=== PATIENT | male | born 1930 | race Caucasian/White ===

== ENCOUNTER 2018-08-10 09:32 | Outpatient (CLI) | payer MEDICARE, BC ==
[~2018-08-10] VITALS: Ht 193 cm; Wt 93.0 kg
[~2018-08-10 09:32] MED LIST: ACET325T49 PO; ACHD5005 PO; ALFU10TA11 PO; ASPI-983 PO; ASPI-999 PO; BACL10TA PO; BETH25TA PO; CALC-250 PO; CARV6.252 PO; CETI10TA20 PO; DOCU-238 PO; DOCU100C37 PO; GABA-486 PO; LACT20SO2 PO; LEVO500T2 PO; LISI10TA2 PO; MAGN400O7 PO; Multivitamins/Minerals Therap PO; ONDA8TAB13 PO; PANT20TA2 PO; PANT40TA3 PO; PHEN-826 PO; POLY17PO6 PO; ROSU10TA PO; SENN-33 PO; SUCR1TAB PO; TAMS0.4C98 PO
[2018-08-10 09:48] VITALS: BP 115/68
[2018-08-10 10:21] LABS: BASOPHILS % (AUTO) 1 % (0-10); EOSINOPHILS # (AUTO) 0.3 10^3/uL (0.0-0.3); EOSINOPHILS % (AUTO) 5 % (0-10); HEMATOCRIT 39 % (40-54); HEMOGLOBIN 12.4 G/DL (13.3-17.7); LYMPHOCYTES # (AUTO) 1.3 X 10^3 (1.0-4.0); LYMPHOCYTES % (AUTO) 18 % (12-44); MEAN CORPUSCULAR HEMOGLOBIN 29 PG (25-34); MEAN CORPUSCULAR HGB CONC 32 G/DL (32-36); MEAN CORPUSCULAR VOLUME 92 FL (80-99); MEAN PLATELET VOLUME 11.6 FL (7.4-10.4); MONOCYTES # (AUTO) 0.6 X 10^3 (0.0-1.0); MONOCYTES % (AUTO) 8 % (0-12); NEUTROPHILS # (AUTO) 4.8 X 10^3 (1.8-7.8); NEUTROPHILS % (AUTO) 68 % (42-75); PLATELET COUNT 140 10^3/uL (130-400); RED CELL DISTRIBUTION WIDTH 13.3 % (10.0-14.5); WHITE BLOOD COUNT 7.1 10^3/uL (4.3-11.0)
[2018-08-10] MEDS ORDERED: GABA-488 PO (10:24)
[2018-08-10] MEDS ORDERED: FURO40TA4 PO (10:24)
[2018-08-10] MEDS ORDERED: MULT-1104 PO (10:24)
[2018-08-10] MEDS ORDERED: SPIR25TA5 PO (10:24)
[2018-08-10] MEDS ORDERED: LACT1CAP62 PO (10:24)
[2018-08-10] MEDS ORDERED: TAMS0.4C2 PO (10:24)
[2018-08-10] MEDS ORDERED: SENN1TAB7 PO (10:24)
[2018-08-10] MEDS ORDERED: CHOL10003 PO (10:24)
== END 2018-08-10 10:15 | disposition home or self-care (01) ==
LOC: PREOP 09:32
PROVIDERS: ATTEND Orthopaedic Surgery Orthopaedic Surgery of the Spine
DX: Z01.812 Encounter for preprocedural laboratory examination (principal); Z11.2 Encounter for screening for other bacterial diseases; M48.061 Spinal stenosis, lumbar region without neurogenic claudication; I10 Essential (primary) hypertension; Z22.322 Carrier or suspected carrier of Methicillin resistant Staphylococcus aureus
CPT/HCPCS: 36415; 85025; 87081

== ENCOUNTER 2018-08-16 06:58 | Day surgery (SDC) | payer MEDICARE, BC ==
[~2018-08-16] VITALS: Ht 193 cm; Wt 93.0 kg
[~2018-08-16 06:58] MED LIST changes: +CHOL10003 PO; +FURO40TA4 PO; +GABA-488 PO; +LACT1CAP62 PO; +MULT-1104 PO; +SENN1TAB7 PO; +SPIR25TA5 PO; +TAMS0.4C2 PO
[2018-08-16] MEDS ORDERED: BUP/EPI 0.5% 1:200,000 (SENSORCAINE) 30 ML VIAL ONE (07:21)
[2018-08-16] MEDS ORDERED: BACITRACIN OINTMENT 28 GM TUBE ONE (07:21)
[2018-08-16] MEDS ORDERED: VANCOMYCIN 1000 MG/VIAL ONE (07:21)
[2018-08-16] MEDS ORDERED: GENTAMICIN 40 MG/ML 2 ML INJ SDV ONE (07:21)
[2018-08-16] MEDS ORDERED: HYDROcodone/APAP 5 MG/325 MG (LORTAB) TAB PO PRN (07:30)
[2018-08-16] MEDS ORDERED: ceFAZolin 2 GM IV Premixed 50 ML IV ONE (07:30)
[2018-08-16] MEDS: LACTATED RINGERS 1,000 ML IV PRN ×2 (07:30→10:04)
[2018-08-16] MEDS ORDERED: ACETAMINOPHEN 325 MG TABLET PO PRN (07:30)
[2018-08-16] MEDS ORDERED: ONDANSETRON 4 MG/2 ML (SDV) Z0FRAN IV PRN (07:30)
[2018-08-16] MEDS ORDERED: morphine INJ 4 MG/ML 1 ML (VIAL/SYRINGE) IVP PRN (07:30)
[2018-08-16] MEDS ORDERED: FAMOTIDINE 20MG/2ML IV (PEPCID) ONE (07:31)
[2018-08-16] MEDS ORDERED: ceFAZolin 2 GM IV Premixed 50 ML ONE (07:31)
[2018-08-16] MEDS ORDERED: FAMOTIDINE 20MG/2ML IV (PEPCID) IVP ONE (08:15)
[2018-08-16] MEDS ORDERED: proPOfol 200 MG/20 ML (DIPRIVAN) VIAL IV ONE (08:23)
[2018-08-16] MEDS ORDERED: LIDOCAINE PF 2% 5 ML (XYLOCAINE) VIAL ONE (08:23)
[2018-08-16] MEDS ORDERED: ROCURONIUM 10 MG/ML 5 ML SYRINGE IV ONE (08:23)
[2018-08-16] MEDS ORDERED: fentaNYL INJECTION 100 MCG/2 ML AMP ONE (08:24)
[2018-08-16] MEDS ORDERED: SEVOFLURANE (ULTANE) 15 ML INHAL SOLN ONE ×4 (08:28→09:58)
[2018-08-16] MEDS ORDERED: ONDANSETRON 4 MG/2 ML (SDV) Z0FRAN ONE (08:28)
[2018-08-16] MEDS ORDERED: PHENYLEPHRINE 100 MCG/ML 10 ML (ANESTHESIA) SYR ONE (09:12)
[2018-08-16] MEDS ORDERED: NEOSTIGMINE 1 MG/ML 5 ML SYRINGE ONE (09:12)
[2018-08-16] MEDS ORDERED: GLYCOPYRROLATE 0.2 MG/ML (ROBINUL) 2 ML VIAL ONE (09:12)
[2018-08-16] MEDS ORDERED: DEXAMETHASONE 10 MG/ML (DECADRON) 1 ML VIAL ONE (09:15)
--- NOTE | 2018-08-16 09:47 | Progress Note-Post Operative ---
Post-Operative Progess Note Surgeon (s)/Marketing Copywriter (s) Surgeon FABRIZIO NUNEZ MD Marketing Copywriter: SCOOBY Brown Pre-Operative Diagnosis stenosis Post-Operative Diagnosis Same Procedure & Operative Findings Date of Procedure 08/16/18 Procedure Performed/Findings L2-3 Laminectomy Anesthesia Type GETA Estimated Blood Loss Estimated blood loss (mL): Min Specimens/Packing Specimens Removed None FABRIZIO NUNEZ MD Aug 16, 2018 09:47
[2018-08-16] MEDS ORDERED: SUGAMMADEX 500 MG/5 ML VIAL (BRIDION) IV ONE (09:53)
--- NOTE | 2018-08-16 10:02 | Diagnostic Imaging Report ---
INDICATION: Surgery. FINDINGS: 4 seconds of actual fluoroscopy time was utilized during lumbosacral surgery. IMPRESSION: 4 seconds of actual fluoroscopy time during spinal surgery. Dictated by: Dictated on workstation # [id number]
[2018-08-16] MEDS ORDERED: ONDANSETRON 4 MG/2 ML (SDV) Z0FRAN IVP PRN (10:15)
[2018-08-16] MEDS ORDERED: morphine INJ 10 MG/ML 1ML (SYR OR VIAL) IVP ONE (10:15)
[2018-08-16] MEDS ORDERED: morphine INJ 10 MG/ML 1ML (SYR OR VIAL) ONE (10:25)
[2018-08-16] MEDS ORDERED: CEFAZOLIN IV SCH (11:30)
[2018-08-16] MEDS ORDERED: WATER IV SCH (11:30)
[2018-08-16 12:00] VITALS: BP 139/67
--- NOTE | 2018-08-16 12:50 | Consultation-Hospitalist ---
HPI History of Present Illness: HPI/Chief Complaint CC: Status post uncomplicated laminectomy by Dr. Garibay POD # 0 HPI: This is an 87-year-old white male known to me from 3 years prior spinal surgery that was extensive and complicated resulting in a 13 day stay in inpatient rehabilitation due to urinary retention and UTI with complicated bacteria. Currently he has just undergone a very simple laminectomy and has no concerns at this time. Pain is much improved since morphine given in recovery. Does not wish to have catheter and less obsolete necessary since he has a large bladder and will know if he cannot urinate so I did pass that along to the nurse. Family at the bedside. Source: patient, family, RN/MD Exam Limitations: no limitations Date Seen 08/16/18 Attending Physician Matt Garibay MD PCP Julio Campbell MD Referring Physician Date of Admission Home Medications & Allergies Home Medications Reviewed patient Home Medication Reconciliation performed by pharmacy medication reconciliations land survey technician and/or nursing. Patients Allergies have been reviewed. Allergies Allergies Coded Allergies No Known Drug Allergies (Unverified02/11/16) Past Byifpky-Gcituk-Excymo Hx Past Med/Social Hx: Reviewed Nursing Past Med/Soc Hx, Reviewed and Corrections made Patient Social History Marrital Status: Employed/Student: retired ([employer] [place] [employer] ) Alcohol Use: Rarely Uses Recreational Drug Use: No Smoking Status: Never a Smoker 2nd Hand Smoke Exposure: No Recent Foreign Travel: No Contact w/other who traveled: No Recent Hopitalizations: No Recent Infectious Disease Expo: No Immunizations Up To Date Tetanus Booster (TDap): Unknown Pediatric: No Date of Pneumonia Vaccine: Feb 24, 2011 Date of Influenza Vaccine: Apr 12, 2018 Seasonal Allergies Seasonal Allergies: Yes Past Medical History Surgeries: Orthopedic Currently Using CPAP: No Currently Using BIPAP: No Cardiac: Coronary Artery Disease, High Cholesterol, Hypertension Reproductive: No Sexually Transmitted Disease: No HIV/AIDS: No Genitourinary: Benign Prostatic Hyperpl Gastrointestinal: Gastroesophageal Reflux, Chronic Constipation, Polyps Musculoskeletal: Degenerate Disk Disease, Back Injury, Chronic Back Pain Loss of Vision: Bilateral Hearing Impairment: Hard of Hearing History of Blood Disorders: No Adverse Reaction to Blood Salazar: No (N/A) Family History Cardiovascular disease 19 FATHER 19 MOTHER Colon cancer G8 SISTER Hypertension 19 FATHER 19 MOTHER Myocardial infarction 19 FATHER 19 MOTHER Respiratory disorder G8 SISTER (lung cancer) Review of Systems Constitutional: see HPI EENTM: no symptoms reported Respiratory: no symptoms reported Cardiovascular: no symptoms reported Genitourinary: no symptoms reported Musculoskeletal: back pain Skin: no symptoms reported Psychiatric/Neurological: No Symptoms Reported Physical Exam Physical Exam Vital Signs Vital Signs - First Documented 08/16/18 08/16/18 07:15 12:00 Temp 97.4 Pulse 66 Resp 18 B/P (MAP) 139/67 (91) Pulse Ox 97 O2 Delivery Room Air Capillary Refill : Height, Weight, BMI Height: 6'4.00" Weight: 205lbs. 0.0oz. [id number]; 25.0 BMI Method: General Appearance: No Apparent Distress, WD/WN, Chronically ill Eyes: Bilateral Eye Normal Inspection, Bilateral Eye PERRL HEENT: PERRL/EOMI, TMs Normal, Normal ENT Inspection, Pharynx Normal Neck: Full Range of Motion, Normal Inspection, Non Tender, Supple, Carotid Bruit Respiratory: Chest Non Tender, Lungs Clear, Normal Breath Sounds, No Accessory Muscle Use, No Respiratory Distress Cardiovascular: Regular Rate, Rhythm, No Edema, No Gallop, No JVD, No Murmur, Normal Peripheral Pulses Gastrointestinal: Normal Bowel Sounds, No Organomegaly, No Pulsatile Mass, Non Tender, Soft Back: Decreased Range of Motion Extremity: Normal Capillary Refill, Normal Inspection, Normal Range of Motion, Non Tender, No Calf Tenderness, No Pedal Edema Neurologic/Psychiatric: Alert, Oriented x3, No Motor/Sensory Deficits, Normal Mood/Affect Skin: Normal Color, Warm/Dry Lymphatic: No Adenopathy Results Results/Procedures Labs Patient resulted labs reviewed. Assessment/Plan Assessment and Plan Assess & Plan/Chief Complaint Assessment: Status post uncomplicated laminectomy History of extensive spine surgery requiring inpatient rehabilitation for 13 days History of urinary retention status post complicated UTI requiring IV antibiotics CAD extensive disease primary drawbench operator helper is Dr. Gerardo now Dr. Patel evaluated him in preparation for the surgery today Hypertension Hyperlipidemia Plan: Pain control SCDs Check labs in a.m. Cardiology consultation Diagnosis/Problems Diagnosis/Problems (1) Failed back syndrome of lumbar spine Status: Acute (2) CAD (coronary artery disease) Status: Chronic Qualifiers: Coronary Disease-Associated Artery/Lesion type: [place] artery [place] vs. transplanted heart: [place] heart Associated angina: without angina Qualified Codes: I25.10 - Atherosclerotic heart disease of [place] coronary artery without angina pectoris (3) Hypertension Status: Chronic Qualifiers: Hypertension type: essential hypertension Qualified Codes: I10 - Essential (primary) hypertension (4) Urinary retention Status: Chronic (5) History of UTI Status: Chronic LUCIAN RAY DO Aug 16, 2018 12:50
[2018-08-16] MEDS: DOCUSATE SODIUM 100 MG (COLACE) CAP PO SCH ×2 (13:16→21:18)
[2018-08-16] MEDS: NS IV 1000 ML 1,000 ML IV SCH ×2 (13:17→21:17)
[2018-08-16 15:49] VITALS: BP 111/53
--- NOTE | 2018-08-16 16:39 | OPERATIVE REPORT ---
DATE OF SERVICE: 08/16/2018 PREOPERATIVE DIAGNOSES: Lumbar stenosis, neural canal due to disk and osseous structures and neurogenic claudication. POSTOPERATIVE DIAGNOSES: Lumbar stenosis, neural canal due to disk and osseous structures and neurogenic claudication. PROCEDURES PERFORMED: L2-L3 laminectomy, medial facetectomy and foraminotomy. DATE AND TIME OF SURGERY: Please see anesthesia record. SURGEON: Matt Garibay MD SHOP TECH: JOSE Brown. ROLE OF GRADES 9 12 TUTOR: Aid in retraction of the procedure, suction of neural elements, and wound closure. ANESTHESIA: General endotracheal. ESTIMATED BLOOD LOSS: Minimal. INTRAVENOUS FLUIDS: Please see anesthesia record. ANTIBIOTICS: Ancef. COMPLICATIONS: None. INDICATIONS FOR PROCEDURE: The patient is an 87-year-old male with severe back pain and lower extremity pain, high grade stenosis, failed conservative therapy, desires operative treatment. NEUROMONITORING: Standard intraoperative neurophysiological monitoring carried out by means of real time continuous high quality bidirectional mode, audio and visual communication to both the automotive paint technician and surgeon by Dr. Garza. SSEPS, EMGs, TcMEPs, TOFs were carried out continuously throughout the procedure stable. DESCRIPTION OF PROCEDURE: The patient was taken to the preoperative holding area and brought back to the operative suite. After adequate induction of general anesthesia, preoperative antibiotics, turned prone on José Miguel table, careful padding to all extremities, sterilely prepped and draped posterior lumbar spine. Attention directed into the midline incision made overlying L2-L3 confirmed on imaging showed a cerebellar retractor was placed deep. Remainder of the case and then a partial 2, partial 3 laminectomy, bilateral medial facetectomy and foraminotomy carried out. Full neck and decompression was assured. Hemostasis was achieved. FloSeal, bone wax and bipolar cautery were utilized free in hemostasis. Wound was copiously irrigated. Wound was closed in layers. The patient transferred to recovery room in stable condition and tolerated the procedure well with stable spinal monitoring. Job ID: [id number] DocumentID: [id number] Dictated Date: 08/16/2018 09:46:13 Commercial Plumber Date: 08/16/2018 16:38:19 Dictated By: MATT GARIBAY MD
[2018-08-16] MEDS: ceFAZolin 2 GM IV Premixed 50 ML IV SCH (16:45)
[2018-08-16] MEDS ORDERED: FUROSEMIDE 40 MG (LASIX) TAB PO PRN (18:45)
[2018-08-16 19:44] VITALS: BP 119/67
[2018-08-16] MEDS ORDERED: ROSUVASTATIN 10 MG (CRESTOR) TABLET PO SCH (21:00)
[2018-08-16] MEDS ORDERED: ASPIRIN E.C. 81 MG (ECOTRIN) TAB PO SCH (21:00)
[2018-08-16] MEDS ORDERED: POLYETHYLENE GLYCOL 17 GM (MIRALAX) PACK PO PRN (21:00)
[2018-08-16] MEDS ORDERED: TAMSULOSIN 0.4 MG (FLOMAX) CAP PO SCH (21:00)
[2018-08-16] MEDS: CARVEDILOL 3.125 MG (COREG) TABLET PO SCH (21:18)
[2018-08-16] MEDS: SPIRONOLACTONE 25 MG (ALDACTONE) TAB PO SCH (21:18)
[2018-08-16] MEDS: GABAPENTIN 300 MG (NEURONTIN) CAP PO SCH (21:19)
--- NOTE | 2018-08-16 21:43 | NUR ---
This RN called Dr. Longoria due to pt not voiding and has been on floor since 1100 today. Order received for mendoza cath.
[2018-08-16] MEDS ORDERED: LIDOCAINE UROJET 2% GEL 10 ML PKG TOP ONE (21:45)
[2018-08-16] MEDS ORDERED: LIDOCAINE UROJET 2% GEL 10 ML PKG ONE (21:48)
[2018-08-16] MEDS: SENNA W/DOCUSATE (SENOKOT S) TABLET PO SCH (22:24)
[2018-08-17] VITALS: BP 114/56
[2018-08-17 03:37] VITALS: BP 107/51
[2018-08-17] MEDS: ceFAZolin 2 GM IV Premixed 50 ML IV SCH (03:48)
[2018-08-17] MEDS: NS IV 1000 ML 1,000 ML IV SCH (03:49)
[2018-08-17 06:15] LABS: BASOPHILS % (AUTO) 0 % (0-10); EOSINOPHILS % (AUTO) 0 % (0-10); HEMATOCRIT 34 % (40-54); HEMOGLOBIN 10.9 G/DL (13.3-17.7); LYMPHOCYTES % (AUTO) 8 % (12-44); MEAN CORPUSCULAR HEMOGLOBIN 29 PG (25-34); MEAN CORPUSCULAR HGB CONC 32 G/DL (32-36); MEAN CORPUSCULAR VOLUME 91 FL (80-99); MEAN PLATELET VOLUME 11.7 FL (7.4-10.4); MONOCYTES # (AUTO) 0.7 X 10^3 (0.0-1.0); MONOCYTES % (AUTO) 5 % (0-12); NEUTROPHILS # (AUTO) 10.7 X 10^3 (1.8-7.8); NEUTROPHILS % (AUTO) 87 % (42-75); PLATELET COUNT 138 10^3/uL (130-400); RED CELL DISTRIBUTION WIDTH 13.3 % (10.0-14.5); WHITE BLOOD COUNT 12.3 10^3/uL (4.3-11.0)
[2018-08-17 06:32] LABS: ALANINE AMINOTRANSFERASE 10 U/L (0-55); ALBUMIN 3.2 GM/DL (3.2-4.5); ALKALINE PHOSPHATASE 77 U/L (40-136); BILIRUBIN,TOTAL 0.4 MG/DL (0.1-1.0); BUN/CREATININE RATIO 18; CALCIUM 8.4 MG/DL (8.5-10.1); CARBON DIOXIDE 21 MMOL/L (21-32); CHLORIDE 109 MMOL/L (98-107); CREATININE SERUM 1.02 MG/DL (0.60-1.30); GFR ESTIMATED > 60; GLUCOSE 130 MG/DL (70-105); POTASSIUM 4.2 MMOL/L (3.6-5.0); SODIUM 140 MMOL/L (135-145)
[2018-08-17 06:50] LABS: EOSINOPHILS % (MANUAL) 1 %; LYMPHOCYTES % (MANUAL) 7 %; MONOCYTES % (MANUAL) 5 %; NEUTROPHILS % (MANUAL) 87 %; RBC MORPH NORMAL
[2018-08-17] MEDS ORDERED: LACTOBACILLUS ACIDOPHILUS (PROBIOTIC) CAPSULE PO SCH (07:00)
[2018-08-17] MEDS ORDERED: VITAMIN D3 1,000 UNITS (CHOLECALCIFEROL) TABLET PO SCH (07:00)
[2018-08-17] MEDS ORDERED: MULTIVIT W/MINERALS TAB (THERAGRAN M) PO SCH ×2 (07:00)
[2018-08-17] MEDS ORDERED: PANTOPRAZOLE 40 MG (PROTONIX) TAB PO SCH ×2 (07:00→09:00)
--- NOTE | 2018-08-17 07:18 | Consultation-Cardiology ---
HPI-Cardiology Cardiology Consultation Date of Consultation 08/17/18 Date of Admission Time Seen by Provider: 07:15 Indication: coronary artery disease HPI 87 years old gentleman with history of coronary artery disease, hypertension hyperlipidemia, underwent laminectomy surgery yesterday, seen this morning sitting up and eating breakfast, feeling well, denied any chest pain or shortness of breath. No palpitation, syncope or near syncopal episode, still having difficulty with urination, had a catheter Home Medications & Allergies Allergies: Coded Allergies: No Known Drug Allergies (Unverified , 02/11/16) Home Medication List Reviewed: Yes KXB-Ysfilg-Mtpiaq Hx Patient Social History Marital Status: Employed/Student: retired ([employer] ) Alcohol Use: Rarely Uses Recreational Drug Use: No Smoking Status: Never a Smoker 2nd Hand Smoke Exposure: No Recent Foreign Travel: No Recent Infectious Disease Expo: No Recent Hopitalizations: No Physical Abuse Screen: No Sexual Abuse: No Immunizations Up To Date Tetanus Booster (TDap): Unknown Date of Pneumonia Vaccine: Feb 24, 2011 Date of Influenza Vaccine: Apr 12, 2018 Family Medical History Family History: Cardiovascular disease 19 FATHER 19 MOTHER Colon cancer G8 SISTER Hypertension 19 FATHER 19 MOTHER Myocardial infarction 19 FATHER 19 MOTHER Respiratory disorder G8 SISTER (lung cancer) Review of Systems Constitutional: no symptoms reported, see HPI EENTM: see HPI, no symptoms reported Respiratory: see HPI; No cough, No dyspnea on exertion, No hemoptysis, No orthopnea, No phlegm, No short of breath, No stridor, No wheezing, No other Cardiovascular: see HPI; No chest pain, No edema, No Hx of Intervention, No palpitations, No syncope, No vascular heart diseas, No other Gastrointestinal: no symptoms reported, see HPI Genitourinary: see HPI, dysuria Musculoskeletal: see HPI, back pain Skin: no symptoms reported, see HPI Psychiatric/Neurological: No Symptoms Reported, See HPI Reviewed Test Results Reviewed Test Results Lab Laboratory Tests Test 08/17/18 05:45 Range/Units White Blood Count 12.3 H 4.3-11.0 10^3/uL Red Blood Count 3.74 L 4.35-5.85 10^6/uL Hemoglobin 10.9 L 13.3-17.7 G/DL Hematocrit 34 L 40-54 % Mean Corpuscular Volume 91 80-99 FL Mean Corpuscular Hemoglobin 29 25-34 PG Mean Corpuscular Hemoglobin Concent 32 32-36 G/DL Red Cell Distribution Width 13.3 10.0-14.5 % Platelet Count 138 130-400 10^3/uL Mean Platelet Volume 11.7 H 7.4-10.4 FL Neutrophils (%) (Auto) 87 H 42-75 % Lymphocytes (%) (Auto) 8 L 12-44 % Monocytes (%) (Auto) 5 0-12 % Eosinophils (%) (Auto) 0 0-10 % Basophils (%) (Auto) 0 0-10 % Neutrophils # (Auto) 10.7 H 1.8-7.8 X 10^3 Lymphocytes # (Auto) 1.0 1.0-4.0 X 10^3 Monocytes # (Auto) 0.7 0.0-1.0 X 10^3 Eosinophils # (Auto) 0.0 0.0-0.3 10^3/uL Basophils # (Auto) 0.0 0.0-0.1 10^3/uL Neutrophils % (Manual) 87 % Lymphocytes % (Manual) 7 % Monocytes % (Manual) 5 % Eosinophils % (Manual) 1 % Blood Morphology Comment NORMAL Sodium Level 140 135-145 MMOL/L Potassium Level 4.2 3.6-5.0 MMOL/L Chloride Level 109 H 98-107 MMOL/L Carbon Dioxide Level 21 21-32 MMOL/L Anion Gap 10 5-14 MMOL/L Blood Urea Nitrogen 18 7-18 MG/DL Creatinine 1.02 0.60-1.30 MG/DL Estimat Glomerular Filtration Rate > 60 BUN/Creatinine Ratio 18 Glucose Level 130 H 70-105 MG/DL Calcium Level 8.4 L 8.5-10.1 MG/DL Corrected Calcium 9.0 8.5-10.1 MG/DL Total Bilirubin 0.4 0.1-1.0 MG/DL Aspartate Amino Transf (AST/SGOT) 17 5-34 U/L Alanine Aminotransferase (ALT/SGPT) 10 0-55 U/L Alkaline Phosphatase 77 40-136 U/L Total Protein 5.0 L 6.4-8.2 GM/DL Albumin 3.2 3.2-4.5 GM/DL Physical Exam Vital Signs Vital Signs - First Documented 08/16/18 08/16/18 07:15 12:00 Temp 97.4 Pulse 66 Resp 18 B/P (MAP) 139/67 (91) Pulse Ox 97 O2 Delivery Room Air Capillary Refill : Height, Weight, BMI Height: 6'4.00" Weight: 205lbs. 0.0oz. 92.116250wn; 25.0 BMI Method: General Appearance: No Apparent Distress, WD/WN Eyes: Bilateral Eye Normal Inspection, Bilateral Eye PERRL, Bilateral Eye EOMI HEENT: PERRL/EOMI, TMs Normal, Normal ENT Inspection, Pharynx Normal Neck: Full Range of Motion, Normal Inspection, Non Tender, Supple, Carotid Bruit Respiratory: Chest Non Tender, Lungs Clear, Normal Breath Sounds, No Accessory Muscle Use, No Respiratory Distress Cardiovascular: Regular Rate, Rhythm, No Edema, No Gallop, No JVD, Normal Peripheral Pulses, Systolic Murmur Gastrointestinal: Normal Bowel Sounds, No Organomegaly, No Pulsatile Mass, Non Tender, Soft Back: Normal Inspection, No CVA Tenderness, No Vertebral Tenderness Extremity: Normal Capillary Refill, Normal Inspection, Normal Range of Motion, Non Tender, No Calf Tenderness, No Pedal Edema Neurologic/Psychiatric: Alert, Oriented x3, No Motor/Sensory Deficits, Normal Mood/Affect Skin: Normal Color, Warm/Dry Lymphatic: No Adenopathy A/P-Cardiology Admission Diagnosis Coronary artery disease Left bundle branch block Hypertension Hyperlipidemia Assessment/Plan Status post L2-L3 laminectomy, recovering well, followed by orthopedic service Coronary artery disease, history of multiple interventions in the past, currently asymptomatic, I'll continue monitoring. No changes are recommended Left bundle branch block, chronic, no change from baseline. I will evaluate EKG today Hypertension, home medications were restarted. Continue to monitor Hyperlipidemia, followed as an outpatient. History of L5-S1 PLIF/PSF Peripheral neuropathy Mild nonobstructive carotid artery stenosis per carotid duplex done June 2018. Continue to monitor. Degenerative joint disease Clinical Quality Measures DVT/VTE Risk/Contraindication: Risk Factor Score Per Nursin RFS Level Per Nursing on Admit: 3=High SANDRA LIN MD Aug 17, 2018 07:18
--- NOTE | 2018-08-17 07:33 | Progress Note (SOAP) ---
Subjective Date Seen by a Provider: Aug 17, 2018 Time Seen by a Provider: 07:32 Subjective/Events-last exam Pain ok, no complaints, back pain tolerable. [place] issues. Objective Exam Vital Signs Date Time Temp Pulse Resp B/P (MAP) Pulse Ox O2 Delivery O2 Flow Rate FiO2 08/17/18 03:37 97.0 56 17 107/51 (69) 97 Room Air 08/17/18 00:00 97.2 65 16 114/56 (75) 97 Room Air 08/16/18 20:00 Room Air 08/16/18 19:44 97.7 79 20 119/67 (84) 96 Room Air 08/16/18 15:49 97.2 56 18 111/53 (72) 96 Room Air 08/16/18 12:00 98.3 67 18 139/67 (91) 100 Room Air I & O 08/17/18 07:00 Intake Total 3880 ml Output Total 1500 ml Balance 2380 ml Capillary Refill : General Appearance: No Apparent Distress Respiratory: No Accessory Muscle Use, No Respiratory Distress Cardiovascular: Regular Rate, Rhythm, Normal Peripheral Pulses Gastrointestinal: soft Extremity: No Calf Tenderness Neurologic/Psychiatric: Alert, Oriented x3, No Motor/Sensory Deficits Skin: Other (dressing dry) Results Lab Laboratory Tests 08/17/18 05:45: White Blood Count 12.3H, Red Blood Count 3.74L, Hemoglobin 10.9L, Hematocrit 34L , Mean Corpuscular Volume 91, Mean Corpuscular Hemoglobin 29, Mean Corpuscular Hemoglobin Concent 32, Red Cell Distribution Width 13.3, Platelet Count 138, Mean Platelet Volume 11.7H, Neutrophils (%) (Auto) 87H, Lymphocytes (%) (Auto) 8L, Monocytes (%) (Auto) 5, Eosinophils (%) (Auto) 0, Basophils (%) (Auto) 0, Neutrophils # (Auto) 10.7H, Lymphocytes # (Auto) 1.0, Monocytes # (Auto) 0.7, Eosinophils # (Auto) 0.0, Basophils # (Auto) 0.0, Neutrophils % (Manual) 87, Lymphocytes % (Manual) 7, Monocytes % (Manual) 5, Eosinophils % (Manual) 1, Blood Morphology Comment NORMAL, Sodium Level 140, Potassium Level 4.2, Chloride Level 109H, Carbon Dioxide Level 21, Anion Gap 10, Blood Urea Nitrogen 18, Creatinine 1.02, Estimat Glomerular Filtration Rate > 60, BUN/Creatinine Ratio 18, Glucose Level 130H, Calcium Level 8.4L, Corrected Calcium 9.0, Total Bilirubin 0.4, Aspartate Amino Transf (AST/SGOT) 17, Alanine Aminotransferase ( ALT/SGPT) 10, Alkaline Phosphatase 77, Total Protein 5.0L, Albumin 3.2 Assessment/Plan Assessment/Plan Assess & Plan/Chief Complaint Lumbar Stenosis Neurogenic Claudication Urinary Retention Plan: D/C home, instructions. Clinical Quality Measures DVT/VTE Risk/Contraindication: Risk Factor Score Per Nursin RFS Level Per Nursing on Admit: 3=High FABRIZIO NUNEZ MD Aug 17, 2018 07:33
[2018-08-17 08:00] VITALS: BP 123/57
[2018-08-17] MEDS: DOCUSATE SODIUM 100 MG (COLACE) CAP PO SCH (08:12)
[2018-08-17] MEDS: SENNA W/DOCUSATE (SENOKOT S) TABLET PO SCH (08:13)
[2018-08-17] MEDS: CARVEDILOL 3.125 MG (COREG) TABLET PO SCH (08:13)
[2018-08-17] MEDS: GABAPENTIN 300 MG (NEURONTIN) CAP PO SCH (08:13)
[2018-08-17] MEDS: SPIRONOLACTONE 25 MG (ALDACTONE) TAB PO SCH (08:18)
[2018-08-17] MEDS ORDERED: lisINopril 10 MG (PRINIVIL) TABLET PO SCH (09:00)
[2018-08-17] MEDS ORDERED: LORATADINE (CLARITIN) 10 MG TAB PO SCH (09:00)
--- NOTE | 2018-08-17 10:02 | Physical Therapy Evaluation ---
PT Evaluation-General Medical Diagnosis Admission Date 2018 Medical Diagnosis: lumbar stenosis Onset Date: Aug 16, 2018 Therapy Diagnosis Therapy Diagnosis: debility Height/Weight Height (Feet): 6 Height (Inches): 4.00 Weight (Pounds): 205 Weight (Ounces): 0.0 Precautions Precautions/Isolations: Standard Precautions Weight Bear Status Right Lower Extremity: Right Weight Bearing/Tolerated Left Lower Extremity: Left Weight Bearing/Tolerated Referral Physician: Lani Reason for Referral: Evaluation/Treatment Medical History Pertinent Medical History: CAD, GERD, HTN, Neuropathy Current History revision lumbar hardware Reviewed History: Yes Social History Home: Single Level Current Living Status: Spouse Entry Into Home: Level Entry Prior/Core FIM Prior Level of Function Therapy Code Descriptions/Definitions Functional [place] Measure: 0=Not Assessed/NA 4=Minimal Assistance 1=Total Assistance 5=Supervision or Setup 2=Maximal Assistance 6=Modified [place] 3=Moderate Assistance 7=Complete [place] Therapy Quality Codes: 6 Independent with activity with or without an assistive device 5 Patient requires set up or clean up by helper. Patient completes activity by themselves 4 Supervision or touching assist (CGA). [place] provide cues , steadying assist 3 The helper provides less than half the effort to complete the activity 2 The helper provides more than half the effort to complete the activity 1 Dependent. The helper does all the effort to complete an activity 7 Patient refused to complete or attempt activity 9 The patient did not perform the activity before the current illness or injury 88 Not attempted due to Medical conditions or safety concerns Functional Abilities and Goals: Independent: Patient completed the activities by him/herself, with or without an assistive device, with no assistance from a helper. Needed Some Help: Patient needed partial assistance from another person to complete activities. Dependent: A helper completed the activities for the patient. Unknown: Not Applicable: Bed Mobility: 6 Transfers (B,C,W/C) (FIM): 6 Gait: 6 Indoor Mobility (Ambulation): Independent Stairs: Independent Prior Devices Use: None (cane) PT Evaluation-Current Subjective Patient agrees to PT. Pain Numeric Pain Scale: 3 Location: Lower Location Body Site: Back Pain Description: Acute Objective Patient Orientation: Normal For Age Problem Solving: Good Attachments: [place] Catheter, IV ROM/Strength ROM Lower Extremities bilateral LE WFL Strength Lower Extremities bilateral LE WFL Integumentary/Posture Posture slightly kyphotic Neuromuscular (Tone, Coordination, Reflexes) grossly intact Sensory Vision: Wears Glasses Hearing: Impaired Sensation Right Lower Extremit: Intact Sensation Left Lower Extremity: Intact Transfers Therapy Code Descriptions/Definitions Functional [place] Measure: 0=Not Assessed/NA 4=Minimal Assistance 1=Total Assistance 5=Supervision or Setup 2=Maximal Assistance 6=Modified [place] 3=Moderate Assistance 7=Complete [place] Transfers (B, C, W/C) (FIM): 6 Scootin Rollin Supine to/from Sit: 6 Sit to/from Stand: 6 Gait Mode of Locomotion: Walk Anticipated Mode of Locomotion: Walk Gait (FIM): 6 Distance (FIM): 3=150 ft Distance: 300' Gait Level of Assist: 6 Gait Assistive Device: FWW Comments/Gait Description steady pace Balance Sitting Static: Normal Sitting Dynamic: Normal Standing Static: Normal Standing Dynamic: Normal Assessment/Needs 87 y.o. male, is currently at [facility], [place] with all gross motor skills without difficulty. Patient to dismiss to home with spouse on this date. Rehab Potential: Fair PT Plan Treatment/Plan Treatment Plan: Discontinue PT Treatment Plan: Other Treatment Duration: Aug 17, 2018 Frequency: 1 time per week Estimated Hrs Per Day: .5 hour per day Patient and/or Family Agrees t: Yes Time/GCodes Time In: 815 Time Out: 826 Total Billed Treatment Time: 11 Total Billed Treatment 1 visit EVLowC 11min TRACY ORTEGA PT Aug 17, 2018 10:02
[2018-08-17 11:00] VITALS: BP 123/57
[2018-08-17] MEDS ORDERED: ceFAZolin 2 GM IV Premixed 50 ML IV SCH (11:30)
--- NOTE | 2018-08-17 16:50 | Anesthesia-General Post-Op ---
General Patient Condition Mental Status/LOC: Same as Preop Cardiovascular: Satisfactory Nausea/Vomiting: Absent Respiratory: Satisfactory Pain: Controlled Complications: Absent Post Op Complications Complications None Follow Up Care/Instructions Patient Instructions None needed. Anesthesia/Patient Condition Patient Condition Patient was seen this morning in post-op rounds and he was doing well, no complaints, stable vital signs, no apparent adverse anesthesia problems. MUKUND CRUZ DO Aug 17, 2018 16:50
== END 2018-08-17 11:10 | disposition home or self-care (01) ==
LOC: SDC 06:58 → 4TH 11:01 → SDC 08-17 11:10
PROVIDERS: ATTEND Orthopaedic Surgery Orthopaedic Surgery of the Spine
DX: M48.062 Spinal stenosis, lumbar region with neurogenic claudication (principal); I25.10 Atherosclerotic heart disease of native coronary artery without angina pectoris; I10 Essential (primary) hypertension; E78.5 Hyperlipidemia, unspecified; I44.7 Left bundle-branch block, unspecified; N40.1 Benign prostatic hyperplasia with lower urinary tract symptoms; R33.8 Other retention of urine; I73.9 Peripheral vascular disease, unspecified; K21.9 Gastro-esophageal reflux disease without esophagitis; Z79.82 Long term (current) use of aspirin; Z79.899 Other long term (current) drug therapy; Z95.5 Presence of coronary angioplasty implant and graft; Z87.440 Personal history of urinary (tract) infections
CPT/HCPCS: 36415; 80053; 85007; 85027; 93005; 94664